=== PATIENT | male | born 1960 | race Caucasian/White ===

== ENCOUNTER 2017-08-22 16:51 | Emergency (ER) | payer OTHER ==
[2017-08-22] MEDS ORDERED: IBUPROFEN 400 MG TABLET. PO (17:10)
[2017-08-22] MEDS ORDERED: diazePAM 5 MG TABLET (17:10)
[2017-08-22] MEDS ORDERED: HYDROcodone/APAP 5/325MG 1 TAB TABLET (17:10)
[2017-08-22] MEDS: diazePAM 5 MG TABLET PO (17:15)
[2017-08-22] MEDS: HYDROcodone/APAP 5/325MG 1 TAB TABLET PO (17:15)
[2017-08-22] MEDS: IBUPROFEN 400 MG TABLET. PO (17:16)
== END 2017-08-22 19:14 | disposition home or self-care (01) ==
LOC: ER 16:51
DX: S16.1XXA Strain of muscle, fascia and tendon at neck level, initial encounter (principal); S09.90XA Unspecified injury of head, initial encounter; R10.2 Pelvic and perineal pain; E11.9 Type 2 diabetes mellitus without complications; E78.00 Pure hypercholesterolemia, unspecified; I10 Essential (primary) hypertension; F41.9 Anxiety disorder, unspecified; Z88.8 Allergy status to other drugs, medicaments and biological substances; Z95.0 Presence of cardiac pacemaker; V43.52XA Car driver injured in collision with other type car in traffic accident, initial encounter; Y93.I9 Activity, other involving external motion; Y92.410 Unspecified street and highway as the place of occurrence of the external cause; Y99.2 Volunteer activity
CPT/HCPCS: 70450; 71045; 72125; 72170; 99284-25